=== PATIENT | male | born 2000 | race Caucasian/White ===

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

== ENCOUNTER 2022-07-20 21:42 | Emergency (ER) | payer MEDICAID, SELFPAY ==
--- NOTE | ~2022-07-20 | XR_ITS ---
EXAMINATION: XR HAND, LEFT CLINICAL INFORMATION: Punched a wall with the left hand. COMPARISON: Radiograph of the left hand 04/02/2018. TECHNIQUE: PA, lateral, and oblique views of the left hand. FINDINGS: The bones and soft tissues are normal. No fracture. Alignment is anatomic. Joint spaces are maintained. No erosions or soft tissue calcifications. XR/XR hand LT 2V IMPRESSION: Normal left hand.
[2022-07-20 21:45] VITALS: BP 140/80; PULSE 90; O2SAT 99
--- NOTE | 2022-07-20 21:55 | PC.NURSE ---
Pt arrives via EMS. Security at bedside for changeover. Pt requesting to keep cellphone. Security confirming with this RN. This RN discussing with MD, per MD LULY okay with pt keeping cellphone as he is calm/cooperative and denies SI. Continue to monitor.
[2022-07-20 22:02] VITALS: BP 128/67; PULSE 88; RESP 16; O2SAT 97; BMI 20.7
--- NOTE | 2022-07-20 22:07 | ED_ITS ---
HPI - General Adult General Chief complaint: Psychiatric Symptoms Stated complaint: crisis Time Seen by Provider: 07/20/22 21:52 Source: patient, EMS and old records reviewed Mode of arrival: EMS Limitations: no limitations History of Present Illness HPI narrative: 21-year-old male came in by ambulance for crisis evaluation. Patient got into argument with his girlfriend over the phone and patient got angry and aggravated started to throw cans and punched the wall with his left hand causing a hole in the wall, patient spoke with his therapist who calm him down and convinced him to come to the hospital for further evaluation. On arrival patient is calm and cooperative patient declined SI or HI, no auditory hallucination. Patient stated he got angry because his girlfriend thought that he is cheating on her. Patient otherwise declined headache, no CP or SOB or abdominal pain. Patient admitted to cutting his right forearm last week when he was angry. Related Data Previous Rx's Medication Instructions Recorded amoxicillin 875 mg-potassium 1 tab PO BID #14 tabs 02/06/21 clavulanate 125 mg tablet (Augmentin) hydrocodone 5 mg-acetaminophen 325 1 tab PO Q6H PRN pain #12 tabs 02/06/21 mg tablet Allergies Allergy/AdvReac Type Severity Reaction Status Date / Time No Known Allergies Allergy Verified 07/20/22 22:07 Review of Systems Review of Systems: All other systems are reviewed and are negative Constitutional: Reports as per HPI and Reports no additional constitutional complaints Eyes: Reports as per HPI and Reports no additional eye complaints Reports system reviewed and no additional complaints, except as documented Cardiovascular: Reports as per HPI and Reports no additional cardiovascular complaints Respiratory: Reports as per HPI and Reports no additional respiratory complaints Gastrointestinal: Reports as per HPI and Reports no additional gastrointestinal complaints Genitourinary: Reports no additional female genitourinary complaints Musculoskeletal: Reports no additional musculoskeletal complaints Skin/Breast: Reports system reviewed and no additional complaints, except as docu Psychiatric: Reports no additional psychiatric complaints Endocrine: Reports no additional endocrine complaints Hematologic/Lymphatic: Reports no additional hematologic/lymphatic complaints Allergic/Immunologic: Reports no additional allergic/immunologic complaints Reports system reviewed and no additional complaints, except as documented and Reports Abnormal speech present PMFSH Past Medical History Medical History No known health problems Social History Social History Alcohol intake: never Patient Tobacco Use Status: Never used Tobacco Advance Directives: No Physical Exam ED Vital Signs: Vital Signs - 24 hr 07/20/22 22:02 Pulse Rate 88 Respiratory Rate 16 Blood Pressure 128/67 Pulse Oximetry 97 Oxygen Delivery Method Room Air BMI result Body Mass Index 20.7 Vital signs have been reviewed as appeared to be correct. Blood pressure trang l. Heart rate normal. Respiration rate normal. Temperature normal. Oxygen saturation normal. Appearance: Alert. Oriented X3. No acute distress. Head: Normal external exam. Normocephalic. Atraumatic. No Teixeira signs noted. No raccoon eyes noted Eyes: PERRLA. EOMI. Conjunctiva and sclera normal. Eyelids normal. ENT: TM's Normal. Pharynx normal. Uvula midline. Moist mucous membranes. No trismus noted. No drooling noted. No muffled voice noted. Neck: Normal inspection. Neck supple. FROM. No adenopathy. Thyroid Normal. No meningeal signs. No neck mass noted. CVS: Normal heart rate and rhythm. Heart sound normal. No murmurs noted. Pulses normal throughout. Respiratory: No respiratory distress. Painless inspiration. Breath sounds normal. No wheezes/rales/rhonchi noted. Chest nontender. No accessory muscle usage noted or decreased air movement noted. Abdomen: Soft and nontender. Bowel sounds normal in all 4 quadrants. No distention noted. No organomegaly noted. No visible injury noted. Back: No CVA tenderness. Full range of motion noted. Skin: Skin warm and dry. Normal skin color. Normal skin turgor. No rashes/lesions/lacerations noted. Extremities: Left hand exam: No deformity, no step-off, neurovascularly intact. Neuro: Oriented X 3. Cranial nerve exam: II-XII are grossly intact No motor deficit. No sensory deficit. Reflexes normal. Patient Orientation: Person, Place, Time and Situation, okay hygiene and grooming. Fair eye contact, attentive, no tics or tremors. Level of Consciousness: Awake, Appropriate and Alert Patient Behavior: Appropriate, Guarded, Cooperative and Anxious Mood Description: Constricted, Blunted and Apprehensive Affect Description: Constricted, Blunted and Apprehensive Patient Cognition Impaired: No Ability to Follow Directions: Excellent Speech Pattern: Clear, Appropriate and Spontaneous Speech, nonpressured, spontaneous with regular rate and rhythm, normal volume and prosody. No dysarthria. Memory Description: Intact, Immediate Intact and Short Term Intact Hallucinations: None Delusions: Not Present Thought Process: Intact Thought Content: positive for Intact, positive for Logical, denies Suicidal Ideation and denies Homicidal Ideation. Depressive Symptoms: Not present. Judgement and Insight: Limited but adequate. Course Course Course Narrative: Punched the wall after anger reaction, patient has no SI, no HI, no auditory hallucination, no using drugs. Patient will be discharged home with his mom feels safe to be discharged patient stated that he will go home sleep. Medical Decision Making Differential Diagnosis Differential Diagnoses: The differential diagnosis associated with the presentation includes (SI, HI, acute psychosis, left hand fracture.) Independent Interpretation I performed an independent interpretation of an: Plain X-Ray (Left hand: No acute fracture or dislocation.) Radiology Impression Discussion of test interpretation with radiology: I have reviewed the radiologist's reading. Discharge Plan Discharge Clinical Impression: Anger reaction, Contusion of hand, left Patient Disposition: Home, Self-Care Instructions: Contusion in Adults (ED) Prescriptions: No Action amoxicillin-pot clavulanate [Augmentin] 875-125 mg tablet 1 tab PO BID Qty: 14 0RF hydrocodone-acetaminophen 5-325 mg tablet 1 tab PO Q6H PRN (Reason: pain) Qty: 12 0RF
--- OUTSIDE RECORDS SUMMARY | 2022-07-20 22:14 | XMS_ITS | Continuity of Care Document ---
:2000 Author Organization [facility] Address [address] [place] [id number]- Care Team Providers Name Role Phone Markos MAURICIO, Nick Vazquez Primary Care Physician Encounter [facility] Date(s): 09/25/20 - 09/28/[address] [address]- Discharge Disposition: A-D/C Home Attending Physician: Og MAURICIO, Balbina Cordero Admitting Physician: Ortega Caban MD Referring Physician: Not on Staff, Referring MD Allergies, Adverse Reactions, Alerts Substance Reaction Severity Status NKA Active Immunizations Given and Recorded Vaccine Date Status Refusal Reason Meningococcal Conjugate Vaccine 07/16/20 Recorded Meningococcal Conjugate Vaccine 10/01/14 Recorded influenza virus vaccine, inactivated 07/16/20 Recorded influenza virus vaccine, inactivated 02/07/18 Recorded influenza virus vaccine, inactivated 03/02/15 Recorded influenza virus vaccine, inactivated 03/16/11 Recorded influenza virus vaccine, inactivated 04/05/10 Recorded influenza virus vaccine, inactivated 02/11/09 Recorded influenza virus vaccine, inactivated 02/06/08 Recorded influenza virus vaccine, inactivated 01/23/07 Recorded influenza virus vaccine, inactivated 05/10/04 Recorded influenza virus vaccine, inactivated 04/09/04 Recorded Human Papillomavirus Vaccine 07/21/15 Recorded Human Papillomavirus Vaccine 03/02/15 Recorded Human Papillomavirus Vaccine 10/01/14 Recorded Hepatitis A Pediatric Vaccine 05/13/15 Recorded Hepatitis A Pediatric Vaccine 10/01/14 Recorded tetanus/diphtheria/pertussis, acel(Tdap) 10/01/14 Recorde d Varicella Virus Vaccine 04/09/12 Recorded Varicella Virus Vaccine 12/27/07 Recorded Varicella Virus Vaccine 01/01/04 Recorded pneumococcal 13-valent vaccine 04/09/12 Recorded Poliovirus Vaccine, Inactivated 01/23/07 Recorded Poliovirus Vaccine, Inactivated 09/18/03 Recorded Poliovirus Vaccine, Inactivated 06/02/03 Recorded Poliovirus Vaccine, Inactivated 03/06/03 Recorded Measles/Mumps/Rubella Virus Vaccine 01/23/07 Recorded Measles/Mumps/Rubella Virus Vaccine 01/01/04 Recorded diphtheria/tetanus/pertussis, acel(DTaP) 01/23/07 Recorde d diphtheria/tetanus/pertussis, acel(DTaP) 04/09/04 Recorde d diphtheria/tetanus/pertussis, acel(DTaP) 07/31/03 Recorde d diphtheria/tetanus/pertussis, acel(DTaP) 06/02/03 Recorde d diphtheria/tetanus/pertussis, acel(DTaP) 03/06/03 Recorde d pneumococcal 7-valent vaccine 04/09/04 Recorded pneumococcal 7-valent vaccine 01/01/04 Recorded pneumococcal 7-valent vaccine 06/02/03 Recorded pneumococcal 7-valent vaccine 03/06/03 Recorded Haemophilus B conjugate (HbOC) vaccine 04/09/04 Recorded Haemophilus B conjugate (HbOC) vaccine 07/31/03 Recorded Haemophilus B conjugate (HbOC) vaccine 06/02/03 Recorded Haemophilus B conjugate (HbOC) vaccine 03/06/03 Recorded hepatitis B pediatric vaccine 07/31/03 Recorded hepatitis B pediatric vaccine 02/03/03 Recorded hepatitis B pediatric vaccine 02 Recorded Medications risperiDONE 1 mg oral tablet 0.5 mg, 0.5, tablet, By Mouth, 2 times a day, # 30 tablet, Refills 0, Tot. Refills 0, Maintenance, 09/28/20 17:15:00 EDT, Route to Pharmacy Electronically, [facility]/pharmacy #[id number], Partial fill upon patientrequest if the prescription is for a schedule II... 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, Active unspecified(Confirmed) Staring(Confirmed) Active Vital Signs Most recent to oldest 1 2 3 [Reference Range]: Oxygen Saturation [94-100 %] 100 % 97 % 100 % (09/28/20 5:14 PM) (09/28/20 5:55 AM) (09/27/20 8:3 7 PM) Pulse Rate [55-90 bpm] 80 bpm 74 bpm 52 bpm (09/28/20 5:14 PM) (09/28/20 5:55 AM) *L* (09/27/20 8:37 PM ) Blood Pressure [80-130/50-80 mm 127/80 mm Hg 130/66 mm Hg 125/77 mm Hg Hg] (09/28/20 5:55 AM) (09/27/20 8:37 PM) (09/27/20 3:1 6 PM) Respiratory Rate [16-30 br/min] 20 br/min 16 br/min 16 br/min (09/28/20 5:14 PM) (09/28/20 5:55 AM) (09/27/20 8:3 7 PM) Temperature [96.8-100.4 DegF] 98.5 DegF 98.1 DegF 98 .4 DegF (09/28/20 5:14 PM) (09/28/20 5:55 AM) (09/27/20 8:3 7 PM) Mode of Delivery (Oxygen) Room air Room air Room a ir (09/28/20 5:14 PM) (09/28/20 5:55 AM) (09/27/20 8:3 7 PM) Blood pressure sites Arm, right Arm, right Arm, right (09/28/20 5:55 AM) (09/27/20 8:37 PM) (09/27/20 3:1 6 PM) Temperature Route Oral Oral Oral (09/28/20 5:14 PM) (09/28/20 5:55 AM) (09/27/20 8:3 7 PM) Social History Social History Type Response Tobacco Use: marijuana. Sex
--- OUTSIDE RECORDS SUMMARY | 2022-07-20 22:15 | XMS_ITS | Continuity of Care Document ---
:2000 Author Organization [facility] Address [address] [place] [id number]- Care Team Providers Name Role Phone Nick Burrows MD Primary Care Physician Encounter [facility] Date(s): 07/01/20 - 07/01/[address] [address]- Encounter Diagnosis Impulsive (Final) - 07/01/20 Discharge Disposition: A-D/C Home Attending Physician: Tolu Reese MD Admitting Physician: Tolu Reese MD Referring Physician: Not on Staff, Referring MD Allergies, Adverse Reactions, Alerts Substance Reaction Severity Status NKA Active Medications SEROquel 200 mg oral tablet 200 mg, 1, tablet, By Mouth, 2 times a day, # 60 tablet, Refills 0, Maintenance, 10/23/17 13:34:25 EDT Start Date: 10/23/17 Status: Ordered Problem List Condition Effective Dates Status Health Status Informant Agitated behavior(Confirmed) Active Palpitations(Confirmed) Active PAC (premature atrial Active contraction)(Confirmed) 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, Active unspecified(Confirmed) Staring(Confirmed) Active Vital Signs Most recent to oldest 1 2 3 [Reference Range]: Height 174 cm 174 cm 174 cm (07/01/20 7:35 PM) (07/01/20 7:11 PM) (07/01/20 7:1 1 PM) Weight 60.8 kg 60.8 kg 60.8 kg (07/01/20 7:35 PM) (07/01/20 7:11 PM) (07/01/20 7:1 1 PM) Oxygen Saturation [94-100 %] 100 % (07/01/20 7:11 PM) Pulse Rate [55-90 bpm] 81 bpm (07/01/20 7:11 PM) Body Mass Index [18.5-24.99] 20.08 20.08 (07/01/20 7:11 PM) (07/01/20 7:11 PM) Blood Pressure [80-130/50-80 mm 128/57 mm Hg Hg] (07/01/20 7:11 PM) Respiratory Rate [16-30 br/min] 16 br/min (07/01/20 7:11 PM) Temperature [96.8-100.4 DegF] 98.2 DegF (07/01/20 7:11 PM) Mode of Delivery (Oxygen) Room air (07/01/20 7:11 PM) Blood pressure sites Arm, left (07/01/20 7:11 PM) Temperature Route Oral (07/01/20 7:11 PM) Dry Weight 60.8 kg 60.8 kg 60.8 kg (07/01/20 7:35 PM) (07/01/20 7:11 PM) (07/01/20 7:1 1 PM) Weight Obtained Via Standing scale (07/01/20 7:11 PM) Dry Weight Obtained Via Standing scale (07/01/20 7:11 PM) Social History Social History Type Response Tobacco Use: marijuana. Sex
--- OUTSIDE RECORDS SUMMARY | 2022-07-20 22:15 | XMS_ITS | Continuity of Care Document ---
:2000 Author Organization [facility] Address [address] [place] [phone]- Care Team Providers Name Role Phone Nick Burrows MD Primary Care Physician Encounter [facility] [place] Date(s): 11/28/20 - 11/28/[address] [phone]- Encounter Diagnosis Nosebleed (Final) - 11/28/20 Discharge Disposition: A-D/C Home Attending Physician: Pepe Fernandez MD Admitting Physician: Pepe Fernandez MD Referring Physician: Not on Staff, Referring [...] 09/28/20 17:15:00 EDT, Route to Pharmacy Electronically, [facility]/pharmacy #[id number], Partial fill upon patientrequest if the prescription is for a schedule II... 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, Active unspecified(Confirmed) Staring(Confirmed) Active Vital Signs Most recent to oldest [Reference Range]: 1 Height 175.5 cm (11/28/20 7:57 AM) Weight 60.3 kg (11/28/20 7:57 AM) Oxygen Saturation [94-100 %] 100 % (11/28/20 7:57 AM) Pulse Rate [55-90 bpm] 74 bpm (11/28/20 7:57 AM) Body Mass Index [18.5-24.99] 19.58 (11/28/20 7:57 AM) Blood Pressure [80-130/50-80 mm Hg] 140/77 mm Hg *H* (11/28/20 7:57 AM) Respiratory Rate [16-30 br/min] 18 br/min (11/28/20 7:57 AM) Temperature [96.8-100.4 DegF] 97.8 DegF (11/28/20 7:57 AM) Mode of Delivery (Oxygen) Room air (11/28/20 7:57 AM) Blood pressure sites Arm, left (11/28/20 7:57 AM) Temperature Route Temporal (11/28/20 7:57 AM) Dry Weight 60.3 kg (11/28/20 7:57 AM) Weight Obtained Via Standing scale (11/28/20 7:57 AM) Dry Weight Obtained Via Standing scale (11/28/20 7:57 AM) Social History Social History Type Response Tobacco Use: marijuana. Sex
--- NOTE | 2022-07-20 22:18 | MHC.EDTECH ---
pt was given a PBJ sandwich with milk and cheese stick
[2022-07-20 22:42] VITALS: BP 111/75; PULSE 72; RESP 12; TEMP 37.2; O2SAT 99
--- NOTE | 2022-07-20 22:45 | PC.NURSE ---
Pt aox3. Discharge instructions reviewed with pt. Pt verbalizes understanding.
== END 2022-07-20 22:46 | disposition home or self-care (01) ==
PROVIDERS: Emergency Provider Emergency Medicine
DX: S60.222A Contusion of left hand, initial encounter (principal); R45.4 Irritability and anger; X58.XXXA Exposure to other specified factors, initial encounter; Y93.9 Activity, unspecified; Y92.009 Unspecified place in unspecified non-institutional (private) residence as the place of occurrence of the external cause; Y99.9 Unspecified external cause status
CPT/HCPCS: 73120; 99283; 99284

== ENCOUNTER 2022-07-27 00:46 | Emergency (ER) | payer MEDICAID, SELFPAY ==
[2022-07-27 00:57] VITALS: BP 124/84; BP 128/88; PULSE 90; PULSE 99; RESP 15; TEMP 37.1; O2SAT 99; BMI 23.6
== END 2022-07-27 02:21 | disposition left against medical advice (07) ==
PROVIDERS: Emergency Provider Emergency Medicine
DX: R51.9 Headache, unspecified (principal); R42 Dizziness and giddiness
CPT/HCPCS: 99281

== ENCOUNTER 2022-08-03 11:53 | Emergency (ER) | payer MEDICAID, SELFPAY ==
[2022-08-03 11:56] VITALS: BP 126/72; PULSE 93; O2SAT 100
[2022-08-03 11:58] VITALS: BP 121/74; PULSE 89; RESP 19; TEMP 36.6; O2SAT 99; BMI 23.6
--- NOTE | 2022-08-03 12:00 | ED_ITS ---
HPI - Nausea/Vomiting/Diarrhea General Chief complaint: Nausea/Vomiting/Diarrhea Stated complaint: Vomiting since this AM per EMS Related Data Previous Rx's Medication Instructions Recorded amoxicillin 875 mg-potassium 1 tab PO BID #14 tabs 02/06/21 clavulanate 125 mg tablet (Augmentin) hydrocodone 5 mg-acetaminophen 325 1 tab PO Q6H PRN pain #12 tabs 02/06/21 mg tablet Allergies Allergy/AdvReac Type Severity Reaction Status Date / Time No Known Allergies Allergy Verified 08/03/22 11:58 [facility] Past Medical History Medical History No known health problems Social History Social History Alcohol intake: never Patient Tobacco Use Status: Never used Tobacco Substance Use Type: Marijuana Advance Directives: No Advance Directives Information Provided: No Physical Exam 2 Vital Signs: Vital Signs: Last Vital Signs Temp 98.1 F 08/03/22 13:53 Pulse 83 08/03/22 13:53 Resp 18 08/03/22 13:53 BP 121/73 08/03/22 13:53 Pulse Ox 98 08/03/22 13:53 O2 Del Method Room Air 08/03/22 13:53 BMI result Body Mass Index 23.6 Course Course Course Narrative: RME - 21 y/o male presents to the ER from home via EMS for evaluation of N/V/D that started at 5am today. He reports diffuse abdominal pains. Thinks it could be from bad mac n cheese he had last night. Took 2 COVID tests at home that were negative. Appears well and drinking water in triage. Plan: [facility] pretty, labs. Medical Decision Making Lab Data 08/03/22 12:04 08/03/22 12:04 Labs: Lab Results 08/03/22 08/03/22 Range/Units 12:04 12:04 WBC 18.0 H (4.8-10.8) X10*3/uL RBC 5.15 (4.60-5.80) X10*6/uL Hgb 16.6 (14.0-18.0) g/dl Hct 48.1 (42.0-52.0) % MCV 93.4 (80.0-98.0) fL MCH 32.2 (27.0-33.0) pg MCHC 34.5 (31.0-36.0) g/dl RDW 12.4 (11.0-16.0) % Plt Count 246 (160-400) X10*3/uL MPV 9.6 (9.4-12.4) fL Immature Gran % (Auto) 0.4 (0.0-0.4) % Neut % (Auto) 92.3 H (45-73) % Lymph % (Auto) 2.2 L (20-40) % Chester % (Auto) 4.7 (2-11) % Eos % (Auto) 0.2 (0-4) % Baso % (Auto) 0.2 (0-2) % Lymph # (Auto) 0.4 L (1.2-4.9) X10*3/uL Chester # (Auto) 0.8 (0.1-1.2) X10*3/uL Eos # (Auto) 0.0 (0.0-0.4) X10*3/uL Baso # (Auto) 0.0 (0.0-0.2) X10*3/uL Abs Immat Gran (auto) 0.08 H (0.00-0.03) X10*3/uL Absolute Neuts (auto) 16.7 H (2.0-8.3) x10*3/uL Absolute Nucleated RBC 0.000 (0.0-0.012) X10*3/uL Nucleated RBC % (auto) 0.0 (0.0-0.2) /100WBC Smear Tech's Comments VERIFIED Sodium 142 (135-145) mmol/L Potassium 4.1 (3.3-5.1) mmol/L Chloride 104 (96-108) mmol/L Carbon Dioxide 28 (22-29) mmol/L Anion Gap 14 (12-20) BUN 12 (9-16) mg/dL Creatinine 0.93 (0.5-1.4) mg/dL Estim Creat Clear Calc 127.7 Estimated GFR > 60 Random Glucose 150 H (60-115) mg/dL Calcium 9.9 (8.4-10.2) mg/dL Magnesium 1.6 (1.6-2.6) mg/dL Total Bilirubin 2.2 H (0.0-1.0) mg/dL Direct Bilirubin 0.5 (0.0-0.5) mg/dL AST 22 (5-37) U/L ALT 25 (0-40) U/L Alkaline Phosphatase 69 (39-117) U/L Total Protein 7.7 (6.5-8.0) g/dL Albumin 5.1 H (3.5-5.0) g/dL Discharge Plan Discharge Clinical Impression: Gastroenteritis Patient Disposition: Elopement Prescriptions: No Action amoxicillin-pot clavulanate [Augmentin] 875-125 mg tablet 1 tab PO BID Qty: 14 0RF hydrocodone-acetaminophen 5-325 mg tablet 1 tab PO Q6H PRN (Reason: pain) Qty: 12 0RF Interventions: ED Discharge Assessment Last Done: 08/03/22 14:12 Discharge Date/Time: 08/03/22 14:25
[2022-08-03 12:12] LABS: Basophils Percent Auto 0.2 % (0-2); Eosinophils Percent Auto 0.2 % (0-4); Hematocrit 48.1 % (42.0-52.0); Hemoglobin 16.6 g/dl (14.0-18.0); Imm Gran Abs Auto 0.08 X10*3/uL (0.00-0.03); Imm Gran Pct Auto 0.4 % (0.0-0.4); Lymphocytes Absolute Auto 0.4 X10*3/uL (1.2-4.9); Lymphocytes Percent Auto 2.2 % (20-40); MANUAL DIFF FLAG SCAN; Mean Corpuscular HGB Conc 34.5 g/dl (31.0-36.0); Mean Corpuscular Hemoglobin 32.2 pg (27.0-33.0); Mean Corpuscular Volume 93.4 fL (80.0-98.0); Mean Platelet Volume 9.6 fL (9.4-12.4); Monocytes Absolute Auto 0.8 X10*3/uL (0.1-1.2); Monocytes Percent Auto 4.7 % (2-11); Neutrophils Absolute Auto 16.7 x10*3/uL (2.0-8.3); Neutrophils Percent Auto 92.3 % (45-73); Platelet Count 246 X10*3/uL (160-400); Red Blood Count 5.15 X10*6/uL (4.60-5.80); Red Cell Distribution Width 12.4 % (11.0-16.0); SCAN SMEAR FLAG 1
[2022-08-03 12:23] LABS: Alanine Aminotransferase 25 U/L (0-40); Albumin Level 5.1 g/dL (3.5-5.0); Alkaline Phosphatase 69 U/L (39-117); Anion Gap 14 (12-20); Aspartate Amino Transferase 22 U/L (5-37); Bilirubin Direct 0.5 mg/dL (0.0-0.5); Bilirubin Total 2.2 mg/dL (0.0-1.0); Blood Urea Nitrogen 12 mg/dL (9-16); Calcium 9.9 mg/dL (8.4-10.2); Carbon Dioxide 28 mmol/L (22-29); Chloride 104 mmol/L (96-108); Creatinine Clr Calc Pharmacy 127.7; Estimated Glomerular Filt Rate > 60; Glucose Random 150 mg/dL (60-115); Magnesium 1.6 mg/dL (1.6-2.6); Potassium 4.1 mmol/L (3.3-5.1); Sodium 142 mmol/L (135-145); Total Protein 7.7 g/dL (6.5-8.0)
[2022-08-03 12:39] LABS: SLIDE REVIEW VERIFIED
[2022-08-03 13:53] VITALS: BP 121/73; PULSE 83; RESP 18; TEMP 36.7; O2SAT 98
--- NOTE | 2022-08-03 13:58 | PC.NURSE ---
Thiago reports daily marijuana smoking has has episodes of nausea vomiting in past relieved with hot showers and abstinence, currently no N/V or abd pain will CTM
== END 2022-08-03 14:25 | disposition left against medical advice (07) ==
PROVIDERS: Physician Assistant; Emergency Provider Emergency Medicine
DX: K52.9 Noninfective gastroenteritis and colitis, unspecified (principal); Z79.899 Other long term (current) drug therapy
CPT/HCPCS: 36415; 80048; 80076; 83735; 85025; 99283

== ENCOUNTER 2022-12-29 13:58 | Outpatient (REF) | payer MEDICAID, SELFPAY ==
--- NOTE | ~2022-12-29 | XR_ITS ---
EXAMINATION: XR LEFT HAND, LEFT WRIST. CLINICAL INFORMATION: Injury. Punched a wall today. Pain COMPARISON: None available. TECHNIQUE: PA, lateral, and oblique views of the left hand. FINDINGS: Left hand and left wrist: There is no visible acute fracture, deformity or, dislocation. There is no fracture involving carpal bones or scaphoid bone. The soft tissues are normal. XR/XR wrist LT w scaphoid IMPRESSION: Unremarkable left hand and left wrist exam.
--- NOTE | ~2022-12-29 | XR_ITS ---
EXAMINATION: XR LEFT HAND, LEFT WRIST. CLINICAL INFORMATION: Injury. Punched a wall today. Pain COMPARISON: None available. TECHNIQUE: PA, lateral, and oblique views of the left hand. FINDINGS: Left hand and left wrist: There is no visible acute fracture, deformity or, dislocation. There is no fracture involving carpal bones or scaphoid bone. The soft tissues are normal. XR/XR hand LT min 3V IMPRESSION: Unremarkable left hand and left wrist exam.
== END 2022-12-29 13:59 | disposition home or self-care (01) ==
LOC: HO.HHCX 13:58
PROVIDERS: Visit Provider Registered Nurse
DX: S69.92XA Unspecified injury of left wrist, hand and finger(s), initial encounter (principal); X58.XXXA Exposure to other specified factors, initial encounter; Y93.9 Activity, unspecified; Y92.9 Unspecified place or not applicable; Y99.9 Unspecified external cause status
CPT/HCPCS: 73110; 73130

== ENCOUNTER 2023-04-04 16:21 | Emergency (ER) | payer MEDICAID, SELFPAY ==
[2023-04-04 16:27] VITALS: BP 118/78; PULSE 76; O2SAT 99
== END 2023-04-04 19:09 | disposition left against medical advice (07) ==
LOC: HO.ED 18:54
PROVIDERS: Emergency Provider Emergency Medicine
DX: R07.9 Chest pain, unspecified (principal); R42 Dizziness and giddiness; R11.0 Nausea; Z53.21 Procedure and treatment not carried out due to patient leaving prior to being seen by health care provider

== ENCOUNTER 2023-10-04 15:53 | Emergency (ER) | payer MEDICAID, SELFPAY ==
[2023-10-04 16:14] VITALS: BP 115/72; PULSE 98; RESP 16; TEMP 37; O2SAT 100; BMI 19.5
--- NOTE | 2023-10-04 16:14 | ED_ITS ---
HPI - General Adult General Chief complaint: Skin/Abscess/Foreign Body Stated complaint: finger laceration Time Seen by Provider: 10/04/23 16:19 Source: patient Mode of arrival: ambulatory Limitations: no limitations History of Present Illness ED Provider: Abigail Whalen PA-C HPI narrative: Patient is a 22 year old assigned male at with no reported medical history presenting to the emergency department today with a left hand laceration. Patient states that he was washing dishes when a dish broke and cut his left index and middle fingers Patient denies any dizziness, lightheadedness, abdominal pain, nausea, vomiting, fever, chills, blurry vision, double vision, loss of vision, chest pain, difficulty breathing, shortness of breath, back pain, night sweats, pain with urination, increased urinary frequency, increased urinary urgency, blood in his urine or stool, syncope or a near syncopal episode, bowel incontinence, bladder incontinence, bowel retention, bladder retention, or any other complaints at this time. Onset (ago): minute(s) Location: left and upper extremity Radiation: non-radiation Severity: mild Severity scale (1-10): 3 Quality: aching Pain Consistency: constant Relieving factors: none Exacerbating factors: none Associated symptoms: denies other symptoms Treatments prior to arrival: none Related Data Previous Rx's ?Medication ?Instructions ?Recorded amoxicillin 875 mg-potassium 1 tab PO BID #14 tabs 02/06/21 clavulanate 125 mg tablet (Augmentin) hydrocodone 5 mg-acetaminophen 325 1 tab PO Q6H PRN pain #12 tabs 02/06/21 mg tablet amoxicillin 875 mg-potassium 1 tab PO BID 10 days #20 tabs 10/04/23 clavulanate 125 mg tablet Allergies Allergy/AdvReac Type Severity Reaction Status Date / Time No Known Allergies Allergy Verified 10/04/23 16:17 Review of Systems 2 Constitutional: Constitutional: Reports no additional constitutional complaints, Denies chills, Denies fever(s) and Denies night sweats Eyes: Eyes: Reports no additional eye complaints, Denies blurry vision, Denies change in vision, Denies diplopia, Denies eye discharge, Denies loss of vision and Denies eye pain ENT: Denies dizziness Cardiovascular: Cardiovascular: Reports no additional cardiovascular complaints, Denies chest pain, Denies lightheadedness, Denies Loss of Consciousness and Denies dyspnea Respiratory: Respiratory: Reports no additional respiratory complaints and Denies dyspnea Gastrointestinal: Gastrointestinal: Reports no additional gastrointestinal complaints, Denies abdominal pain, Denies melena, Denies hematochezia, Denies change in bowel habits and Denies change in stool character Genitourinary: Genitourinary: Reports no additional male genitourinary complaints, Denies hematuria, Denies oliguria, Denies difficulty urinating, Denies dysuria, Denies urinary frequency, Denies urinary hesitancy, Denies urinary incontinence and Denies urinary urgency Musculoskeletal: Musculoskeletal: Reports no additional musculoskeletal complaints, Denies numbness and Denies tingling Comments: left index finger laceration and left middle finger laceration Neurologic: Denies dizziness, Denies loss of vision, Denies numbness and Denies tingling Psychiatric: Psychiatric: Reports no additional psychiatric complaints Endocrine: Endocrine: Reports no additional endocrine complaints Hematologic/Lymphatic: Hematologic/Lymphatic: Reports no additional hematologic/lymphatic complaints Allergic/Immunologic: Allergic/Immunologic: Reports no additional allergic/immunologic complaints PMFSH Past Medical History Attestation statement: The following information was validated with the patient. Source: old records reviewed and nursing notes reviewed Medical History No known health problems Social History Social History Alcohol intake: never Patient Tobacco Use Status: Never used Tobacco Substance Use Type: Marijuana Advance Directives: No Advance Directives Information Provided: No Physical Exam ED Vital Signs: Vital Signs - 24 hr 10/04/23 16:14 Temperature 98.6 F Pulse Rate 98 Respiratory Rate 16 Blood Pressure 115/72 Pulse Oximetry 100 Oxygen Delivery Method Room Air BMI result Body Mass Index 19.5 Const General: cooperative, no acute distress, alert and awake Nutritional Appearance: well nourished Orientation/consciousness: patient oriented x3 Limitations: no limitations HENMT Head: Yes normal to inspection and Yes atraumatic Ears: hearing grossly normal bilaterally and external ears normal General nose exam: Normal external nose present, no nasal discharge noted and no epistaxis Face and sinus: Yes normal facial exam, No abrasion and No laceration Mouth: Normal oral and palatal mucosa present, no drooling and no muffled voice Eyes General: appearance normal, both eyes and all related structures Periorbital: periorbital findings normal Eyelids: Yes eyelids normal Conjunctivae: conjunctivae normal Pupils: Equal, round and reactive pupils present EOM: EOMs intact bilaterally Neck Neck: Yes normal visual inspection, Yes full ROM and Yes no lymphadenopathy Chest Chest palpation & inspection: normal inspection of the chest Resp Effort & Inspection: normal respiratory effort and able to speak in complete sentences GI Inspection: Yes normal to inspection Neuro General: patient oriented x3 and moves all extremities Cranial nerves: Yes Equal, round and reactive pupils present Cognition (Neuro): normal cognition Motor exam (neuro): 5/5 motor strength present throughout Sensory Exam: Normal double simultaneous stimulation for sensation Coordination: [id number] test normal Extrem Other: small superficial laceration present to the ulnar aspect of the left 2nd digit, no active bleeding General: Yes full ROM and Yes capillary refill normal Hand/finger images: 2 1. flap like laceration, minimal gaping, no active bleeding Psych Appearance: grossly normal Mental Status: mental status grossly normal Affect: normal affect Attitude: cooperative Thought process: Normal thought process present Thought content: Normal thought content present Insight: Good insight present (Psych) Course Course Course Narrative: This is an RME done by VALENTIN Carreon: Additional HPI, ROS, PE not included below will be deferred to primary provider. This is a 22 year old male no known pmh who reports with a finger laceration on his left middle finger after cutting it while washing dishes on a pointy cup . Patient is right handed and is unsure of tetanus vaccination status. Appearance: Alert.? Oriented X3.? No acute cardiopulmonary distress distress.? Head: Normocephalic, atraumatic, no step-offs or deformities CVS: Pulses normal.? Respiratory: No respiratory distress.? Abdomen: Soft and nontender.? Skin: ? Normal skin color. Extremities: 5/5 strength to bilateral upper and lower extremities. Finger is wrapped and kept wrapped so not visualized during RME. Neuro: Oriented X 3.? No motor deficit.? No sensory deficit. Procedures Laceration L ulnar aspect of 2nd digit: Side (If applicable): left (2nd digit) Size (cm): 0.5 Description: linear Depth: simple, single layer Pre-repair: irrigated extensively and deep structures intact Skin layer closed with: other (dermabond) Size (cm): other (dermabond) Technique: other (dermabond) L base of 3rd digit and superior aspect of palm: Site: upper extremity Side (If applicable): left Size (cm): 1 Description: flap and irregular Pre-repair: wound explored, irrigated extensively and deep structures intact Skin layer closed with: other (dermabond) Size (cm): other (dermabond) Technique: other (dermabond) Medical Decision Making Medical Decision Making MDM Narrative: Patient is a 22 year old assigned male at with no reported medical history presenting to the emergency department today with a left 2nd and 3rd digit laceration. Patient's physical exam was as noted in the physical exam portion of this note. I explained my physical exam findings to the patient. I answered all questions asked by the patient. Patient stated that he did not want stitches in either laceration and did not want any numbing medication to get stitches in either laceration. While the laceration to the 2nd digit was superficial, the other laceration does require stitches to approximate and heal appropriately. I explained this to the patient as well as the risks of using dermabond on both lacerations. Patient stated that he refuses stitches and wants the dermabond. Wound edges of both wounds were approximated as best as possible and dermabond was applied, without incident. Patient's PMS was intact prior to and after dermabond. Patient's lacerations were wrapped with non-adherent dressings, without incident. PMS was intact prior to and after dressing. stressed the importance of the patient taking his medication as prescribed. I stressed the importance of the patient following up with his primary care provider. I stressed the importance of the patient returning to the emergency department immediately if his symptoms were to worsen or if he were to develop any dizziness, shortness of breath, difficulty breathing, chest pain, blurry vision, loss of vision, nausea, vomiting, abdominal pain, fever, chills, back pain, or any other complaints. Patient verbalized agreement and understanding with this treatment plan and discharge. Differential Diagnosis Differential Diagnoses: The differential diagnosis associated with the presentation includes Laceration Admission/Observation Consideration of admission/observation: Escalation of care including admission/observation considered Patient would have been admitted to the hospital had his clinical presentation warranted hospital admission. Prescription Management I considered prescription management with: Antibiotic (given the mechanism of injury, patient prescribed a prophylactic antibiotic.) Critical Care Time Critical Care Time Critical Care Time: Yes Total Critical Care Time: 31 Attestation: I spent 31 minutes of Critical Care Time with this patient. This does not include time spent on separately reported billable procedures. Discharge Plan Discharge Clinical Impression: Laceration of hand, Laceration of finger Patient Disposition: Home, Self-Care Instructions: Finger Laceration (ED), Skin Adhesive Care (ED) Additional Instructions: Do NOT get the affected area wet for at least 7 days. The dermabond will dissolve on it's own. If you change your mind and want stitches for the larger laceration, please return within 24 hours of the laceration. Follow up with your primary care provider. Return to the emergency department immediately if your symptoms worsen or if you develop any dizziness, shortness of breath, difficulty breathing, chest pain, blurry vision, loss of vision, nausea, vomiting, abdominal pain, fever, chills, back pain, or any other complaints. Prescriptions: New amoxicillin-pot clavulanate 875-125 mg tablet 1 tab PO BID 10 Days Qty: 20 0RF No Action amoxicillin-pot clavulanate [Augmentin] 875-125 mg tablet 1 tab PO BID Qty: 14 0RF hydrocodone-acetaminophen 5-325 mg tablet 1 tab PO Q6H PRN (Reason: pain) Qty: 12 0RF Referrals: [facility] [Primary Care Provider] - Stand Alone Forms: Work/School Release Print Language: Kinyarwanda
[2023-10-04] MEDS: Diphth,Pertus(ACell),Tet Adult 0.5 ML SYRINGE IM (16:34)
[2023-10-04 17:00] VITALS: BP 115/72; PULSE 98; RESP 16; TEMP 37; O2SAT 100
== END 2023-10-04 17:01 | disposition home or self-care (01) ==
PROVIDERS: Emergency Provider Emergency Medicine Emergency Medical Services
DX: S61.213A Laceration without foreign body of left middle finger without damage to nail, initial encounter (principal); S61.211A Laceration without foreign body of left index finger without damage to nail, initial encounter; W25.XXXA Contact with sharp glass, initial encounter; Y93.G1 Activity, food preparation and clean up; Y92.000 Kitchen of unspecified non-institutional (private) residence as the place of occurrence of the external cause; Y99.9 Unspecified external cause status; Z23 Encounter for immunization
CPT/HCPCS: 12001; 90471; 90715; 99282; 99284